=== PATIENT | female | born 1950 | race Caucasian/White ===

== ENCOUNTER 2020-08-11 09:21 | Outpatient (CLI) | payer MEDICARE, BC | END 2020-08-11 09:22 | disposition home or self-care (01) | LOC: CSHWCC 09:21 | PROVIDERS: ATTEND Nurse Practitioner Family | DX: E11.622 Type 2 diabetes mellitus with other skin ulcer (principal); R60.0 Localized edema; T81.30XD Disruption of wound, unspecified, subsequent encounter; D64.9 Anemia, unspecified; E66.01 Morbid (severe) obesity due to excess calories; G89.29 Other chronic pain; I10 Essential (primary) hypertension; I87.2 Venous insufficiency (chronic) (peripheral); I89.0 Lymphedema, not elsewhere classified; L59.8 Other specified disorders of the skin and subcutaneous tissue related to radiation; L89.152 Pressure ulcer of sacral region, stage 2; M13.80 Other specified arthritis, unspecified site; T66.XXXA Radiation sickness, unspecified, initial encounter; Z74.01 Bed confinement status; Z85.048 Personal history of other malignant neoplasm of rectum, rectosigmoid junction, and anus; W45.8XXA Other foreign body or object entering through skin, initial encounter; Z85.44 Personal history of malignant neoplasm of other female genital organs | CPT/HCPCS: 99213; G0463 ==

== ENCOUNTER 2021-03-07 08:12 | Outpatient (CLI) | payer MEDICARE, BC | END 2021-03-07 08:13 | disposition home or self-care (01) | LOC: CSHWCC 08:12 | PROVIDERS: ATTEND Nurse Practitioner Family | DX: M27.2 Inflammatory conditions of jaws (principal) | CPT/HCPCS: 36416 ==

== ENCOUNTER 2021-03-13 08:31 | Outpatient (CLI) | payer MEDICARE, BC | END 2021-03-13 08:32 | disposition home or self-care (01) | LOC: CSHWCC 08:31 | PROVIDERS: ATTEND Nurse Practitioner Family | DX: M27.2 Inflammatory conditions of jaws (principal); L59.8 Other specified disorders of the skin and subcutaneous tissue related to radiation | CPT/HCPCS: 82962; 97139; G0277; 36416 ==

== ENCOUNTER 2021-03-14 08:11 | Outpatient (CLI) | payer MEDICARE, BC | END 2021-03-14 08:12 | disposition home or self-care (01) | LOC: CSHWCC 08:11 | PROVIDERS: ATTEND Nurse Practitioner Family | DX: L59.8 Other specified disorders of the skin and subcutaneous tissue related to radiation (principal) | CPT/HCPCS: 82962; 97139; G0277; 36416 ==

== ENCOUNTER 2021-03-15 09:42 | Outpatient (CLI) | payer MEDICARE, BC | END 2021-03-15 09:43 | disposition home or self-care (01) | LOC: CSHWCC 09:42 | PROVIDERS: ATTEND Nurse Practitioner Family | DX: M27.2 Inflammatory conditions of jaws (principal); L59.8 Other specified disorders of the skin and subcutaneous tissue related to radiation | CPT/HCPCS: 36416 ==

== ENCOUNTER 2021-03-16 08:27 | Outpatient (CLI) | payer MEDICARE, BC | END 2021-03-16 08:28 | disposition home or self-care (01) | LOC: CSHWCC 08:27 | PROVIDERS: ATTEND Nurse Practitioner Family | DX: M27.2 Inflammatory conditions of jaws (principal); L59.8 Other specified disorders of the skin and subcutaneous tissue related to radiation | CPT/HCPCS: 36416 ==

== ENCOUNTER 2021-03-21 10:33 | Outpatient (CLI) | payer MEDICARE, BC | END 2021-03-21 10:34 | disposition home or self-care (01) | LOC: CSHWCC 10:33 | PROVIDERS: ATTEND Nurse Practitioner Family | DX: M27.2 Inflammatory conditions of jaws (principal); L59.8 Other specified disorders of the skin and subcutaneous tissue related to radiation | CPT/HCPCS: 82962; 97139; G0277; 36416 ==

== ENCOUNTER 2021-03-22 09:19 | Outpatient (CLI) | payer MEDICARE, BC | END 2021-03-22 09:20 | disposition home or self-care (01) | LOC: CSHWCC 09:19 | PROVIDERS: ATTEND Nurse Practitioner Family | DX: M27.2 Inflammatory conditions of jaws (principal); L59.8 Other specified disorders of the skin and subcutaneous tissue related to radiation | CPT/HCPCS: 36416; G0277 ==

== ENCOUNTER 2021-03-24 09:59 | Outpatient (CLI) | payer MEDICARE, BC | END 2021-03-24 10:00 | disposition home or self-care (01) | LOC: CSHWCC 09:59 | PROVIDERS: ATTEND Nurse Practitioner Family | DX: M27.2 Inflammatory conditions of jaws (principal); T66.XXXA Radiation sickness, unspecified, initial encounter | CPT/HCPCS: 82962; 97139; G0277; 36416 ==

== ENCOUNTER 2021-03-28 09:28 | Outpatient (CLI) | payer MEDICARE, BC | END 2021-03-28 09:29 | disposition home or self-care (01) | LOC: CSHWCC 09:28 | PROVIDERS: ATTEND Nurse Practitioner Family | DX: M27.2 Inflammatory conditions of jaws (principal); L59.8 Other specified disorders of the skin and subcutaneous tissue related to radiation | CPT/HCPCS: 36416; G0277 ==

== ENCOUNTER 2021-03-29 10:57 | Outpatient (CLI) | payer MEDICARE, BC | END 2021-03-29 10:58 | disposition home or self-care (01) | LOC: CSHWCC 10:57 | PROVIDERS: ATTEND Nurse Practitioner Family | DX: M27.2 Inflammatory conditions of jaws (principal); L59.8 Other specified disorders of the skin and subcutaneous tissue related to radiation | CPT/HCPCS: 36416 ==

== ENCOUNTER 2021-03-30 10:21 | Outpatient (CLI) | payer MEDICARE, BC | END 2021-03-30 10:22 | disposition home or self-care (01) | LOC: CSHWCC 10:21 | PROVIDERS: ATTEND Nurse Practitioner Family | DX: M27.2 Inflammatory conditions of jaws (principal); L59.8 Other specified disorders of the skin and subcutaneous tissue related to radiation | CPT/HCPCS: 36416 ==

== ENCOUNTER 2021-03-31 09:50 | Outpatient (CLI) | payer MEDICARE, BC | END 2021-03-31 09:51 | disposition home or self-care (01) | LOC: CSHWCC 09:50 | PROVIDERS: ATTEND Nurse Practitioner Family | DX: M27.2 Inflammatory conditions of jaws (principal); L59.8 Other specified disorders of the skin and subcutaneous tissue related to radiation | CPT/HCPCS: 36416 ==

== ENCOUNTER 2021-04-04 08:14 | Outpatient (CLI) | payer MEDICARE, BC | END 2021-04-04 08:15 | disposition home or self-care (01) | LOC: CSHWCC 08:14 | PROVIDERS: ATTEND Nurse Practitioner Family | DX: M27.2 Inflammatory conditions of jaws (principal); L59.8 Other specified disorders of the skin and subcutaneous tissue related to radiation | CPT/HCPCS: 36416 ==

== ENCOUNTER 2021-04-05 11:07 | Outpatient (CLI) | payer MEDICARE, BC | END 2021-04-05 11:08 | disposition home or self-care (01) | LOC: CSHWCC 11:07 | PROVIDERS: ATTEND Nurse Practitioner Family | DX: M27.2 Inflammatory conditions of jaws (principal); L59.8 Other specified disorders of the skin and subcutaneous tissue related to radiation | CPT/HCPCS: 36416 ==

== ENCOUNTER 2021-04-11 11:21 | Outpatient (CLI) | payer MEDICARE, BC | END 2021-04-11 11:22 | disposition home or self-care (01) | LOC: CSHWCC 11:21 | PROVIDERS: ATTEND Nurse Practitioner Family | DX: M27.2 Inflammatory conditions of jaws (principal); L59.8 Other specified disorders of the skin and subcutaneous tissue related to radiation | CPT/HCPCS: 82962; 97139; G0277; 36416 ==

== ENCOUNTER 2021-04-12 09:20 | Outpatient (CLI) | payer MEDICARE, BC | END 2021-04-12 09:21 | disposition home or self-care (01) | LOC: CSHWCC 09:20 | PROVIDERS: ATTEND Nurse Practitioner Family | DX: M27.2 Inflammatory conditions of jaws (principal); L59.8 Other specified disorders of the skin and subcutaneous tissue related to radiation | CPT/HCPCS: 36416 ==

== ENCOUNTER 2021-04-13 10:29 | Outpatient (CLI) | payer MEDICARE, BC | END 2021-04-13 10:30 | disposition home or self-care (01) | LOC: CSHWCC 10:29 | PROVIDERS: ATTEND Nurse Practitioner Family | DX: M27.2 Inflammatory conditions of jaws (principal); L59.8 Other specified disorders of the skin and subcutaneous tissue related to radiation | CPT/HCPCS: 36416; G0277 ==

== ENCOUNTER 2021-04-14 09:53 | Outpatient (CLI) | payer MEDICARE, BC | END 2021-04-14 09:54 | disposition home or self-care (01) | LOC: CSHWCC 09:53 | PROVIDERS: ATTEND Nurse Practitioner Family | DX: M27.2 Inflammatory conditions of jaws (principal); L59.8 Other specified disorders of the skin and subcutaneous tissue related to radiation | CPT/HCPCS: 36416; G0277 ==

== ENCOUNTER 2021-04-18 11:10 | Outpatient (CLI) | payer MEDICARE, BC | END 2021-04-18 11:11 | disposition home or self-care (01) | LOC: CSHWCC 11:10 | PROVIDERS: ATTEND Nurse Practitioner Family | DX: M27.2 Inflammatory conditions of jaws (principal); L59.8 Other specified disorders of the skin and subcutaneous tissue related to radiation | CPT/HCPCS: 36416 ==

== ENCOUNTER 2021-04-19 10:59 | Outpatient (CLI) | payer MEDICARE, BC | END 2021-04-19 11:00 | disposition home or self-care (01) | LOC: CSHWCC 10:59 | PROVIDERS: ATTEND Nurse Practitioner Family | DX: M27.2 Inflammatory conditions of jaws (principal); L59.8 Other specified disorders of the skin and subcutaneous tissue related to radiation | CPT/HCPCS: 36416 ==

== ENCOUNTER 2021-04-20 10:55 | Outpatient (CLI) | payer MEDICARE, BC | END 2021-04-20 10:56 | disposition home or self-care (01) | LOC: CSHWCC 10:55 | PROVIDERS: ATTEND Nurse Practitioner Family | DX: M27.2 Inflammatory conditions of jaws (principal); L59.8 Other specified disorders of the skin and subcutaneous tissue related to radiation | CPT/HCPCS: 82962; 97139; G0277; 36416 ==

== ENCOUNTER 2021-04-21 10:58 | Outpatient (CLI) | payer MEDICARE, BC | END 2021-04-21 10:59 | disposition home or self-care (01) | LOC: CSHWCC 10:58 | PROVIDERS: ATTEND Nurse Practitioner Family | DX: M27.2 Inflammatory conditions of jaws (principal); L59.8 Other specified disorders of the skin and subcutaneous tissue related to radiation | CPT/HCPCS: 36416; G0277 ==

== ENCOUNTER 2021-04-25 10:57 | Outpatient (CLI) | payer MEDICARE, BC | END 2021-04-25 10:58 | disposition home or self-care (01) | LOC: CSHWCC 10:57 | PROVIDERS: ATTEND Nurse Practitioner Family | DX: M27.2 Inflammatory conditions of jaws (principal); L59.8 Other specified disorders of the skin and subcutaneous tissue related to radiation | CPT/HCPCS: 36416; G0277 ==

== ENCOUNTER 2021-04-27 10:49 | Outpatient (CLI) | payer BC | END 2021-04-27 10:50 | disposition home or self-care (01) | LOC: CSHWCC 10:49 | PROVIDERS: ATTEND Nurse Practitioner Family | DX: M27.2 Inflammatory conditions of jaws (principal); L59.8 Other specified disorders of the skin and subcutaneous tissue related to radiation | CPT/HCPCS: 36416 ==

== ENCOUNTER 2021-05-16 11:11 | Outpatient (CLI) | payer MEDICARE, BC | END 2021-05-16 11:12 | disposition home or self-care (01) | LOC: CSHWCC 11:11 | PROVIDERS: ATTEND Nurse Practitioner Family | DX: M27.2 Inflammatory conditions of jaws (principal); L59.8 Other specified disorders of the skin and subcutaneous tissue related to radiation | CPT/HCPCS: 36416 ==

== ENCOUNTER 2021-05-19 11:21 | Outpatient (CLI) | payer MEDICARE, BC | END 2021-05-19 11:22 | disposition home or self-care (01) | LOC: CSHWCC 11:21 | PROVIDERS: ATTEND Nurse Practitioner Family | DX: M27.2 Inflammatory conditions of jaws (principal); L59.8 Other specified disorders of the skin and subcutaneous tissue related to radiation | CPT/HCPCS: 36416; G0277 ==

== ENCOUNTER 2021-05-22 12:09 | Outpatient (CLI) | payer MEDICARE, BC | END 2021-05-22 12:10 | disposition home or self-care (01) | LOC: CSHWCC 12:09 | PROVIDERS: ATTEND Nurse Practitioner Family | DX: M27.2 Inflammatory conditions of jaws (principal); L59.8 Other specified disorders of the skin and subcutaneous tissue related to radiation | CPT/HCPCS: 36416 ==

== ENCOUNTER 2021-05-23 11:52 | Outpatient (CLI) | payer MEDICARE, BC | END 2021-05-23 11:53 | disposition home or self-care (01) | LOC: CSHWCC 11:52 | PROVIDERS: ATTEND Nurse Practitioner Family | DX: M27.2 Inflammatory conditions of jaws (principal) | CPT/HCPCS: 82962; 97139; G0277; 36416 ==

== ENCOUNTER 2021-05-30 15:15 | Outpatient (CLI) | payer MEDICARE, BC | END 2021-05-30 15:16 | disposition home or self-care (01) | LOC: CSHWCC 15:15 | PROVIDERS: ATTEND Nurse Practitioner Family | DX: M27.2 Inflammatory conditions of jaws (principal); L59.8 Other specified disorders of the skin and subcutaneous tissue related to radiation | CPT/HCPCS: 82962; 97139; G0277; 36416 ==

== ENCOUNTER 2021-05-31 14:43 | Outpatient (CLI) | payer MEDICARE, BC | END 2021-05-31 14:44 | disposition home or self-care (01) | LOC: CSHWCC 14:43 | PROVIDERS: ATTEND Nurse Practitioner Family | DX: M27.2 Inflammatory conditions of jaws (principal) | CPT/HCPCS: 82962; 97139; G0277; 36416 ==

== ENCOUNTER 2021-06-02 10:27 | Outpatient (CLI) | payer MEDICARE, BC | END 2021-06-02 10:28 | disposition home or self-care (01) | LOC: CSHWCC 10:27 | PROVIDERS: ATTEND Nurse Practitioner Family | DX: M27.2 Inflammatory conditions of jaws (principal); L59.8 Other specified disorders of the skin and subcutaneous tissue related to radiation | CPT/HCPCS: 36416 ==

== ENCOUNTER 2021-06-06 14:35 | Outpatient (CLI) | payer MEDICARE, BC | END 2021-06-06 14:36 | disposition home or self-care (01) | LOC: CSHWCC 14:35 | PROVIDERS: ATTEND Nurse Practitioner Family | DX: M27.2 Inflammatory conditions of jaws (principal); L59.8 Other specified disorders of the skin and subcutaneous tissue related to radiation | CPT/HCPCS: 36416 ==

== ENCOUNTER 2021-06-07 11:18 | Outpatient (CLI) | payer MEDICARE, BC | END 2021-06-07 11:19 | disposition home or self-care (01) | LOC: CSHWCC 11:18 | PROVIDERS: ATTEND Nurse Practitioner Family | DX: M27.2 Inflammatory conditions of jaws (principal); L59.8 Other specified disorders of the skin and subcutaneous tissue related to radiation | CPT/HCPCS: 36416 ==

== ENCOUNTER 2021-06-08 07:55 | Outpatient (CLI) | payer MEDICARE, BC | END 2021-06-08 07:56 | disposition home or self-care (01) | LOC: CSHWCC 07:55 | PROVIDERS: ATTEND Nurse Practitioner Family | DX: M27.2 Inflammatory conditions of jaws (principal); L59.8 Other specified disorders of the skin and subcutaneous tissue related to radiation | CPT/HCPCS: 36416 ==

== ENCOUNTER 2021-06-09 10:50 | Outpatient (CLI) | payer MEDICARE, BC | END 2021-06-09 10:51 | disposition home or self-care (01) | LOC: CSHWCC 10:50 | PROVIDERS: ATTEND Nurse Practitioner Family | DX: M27.2 Inflammatory conditions of jaws (principal); L59.8 Other specified disorders of the skin and subcutaneous tissue related to radiation | CPT/HCPCS: 36416 ==

== ENCOUNTER 2021-07-13 14:20 | Emergency (ER) | payer MEDICARE, BC | END 2021-07-13 16:35 | disposition home or self-care (01) | LOC: CSHERS 14:20 | DX: S06.0X0A Concussion without loss of consciousness, initial encounter (principal); E11.9 Type 2 diabetes mellitus without complications; G47.30 Sleep apnea, unspecified; J43.9 Emphysema, unspecified; Z87.891 Personal history of nicotine dependence; Z79.899 Other long term (current) drug therapy; W18.30XA Fall on same level, unspecified, initial encounter | CPT/HCPCS: 70450 ==